=== PATIENT | male | born 1940 | race Caucasian/White ===

== ENCOUNTER → 2016-11-14 | Outpatient (CLI) | payer MEDICARE, BC ==
--- NOTE | 2016-11-15 10:24 | ECHOF ---
Referral Reason:R01.1 murmur MEASUREMENTS -------- HEIGHT: 172.7 cm WEIGHT: 108.9 kg BP: IVSd: 1.2 cm (0.6 - 1.1) LVIDd: 3.7 cm (3.9 - 5.3) LVPWd: 1.4 cm (0.6 - 1.1) IVSs: 2.1 cm LVIDs: 1.7 cm LVPWs: 1.7 cm Ao Diam: 3.3 cm (2.0 - 3.7) AV Cusp: 2.2 cm (1.5 - 2.6) LA Diam: 3.9 cm (2.7 - 3.8) MV EXCURSION: 10.325 mm (> 18.000) MV EF SLOPE: 50 mm/s (70 - 150) EPSS: 0.4 cm MV E Gideon: 1.05 m/s MV DecT: 237 ms MV A Gideon: 0.98 m/s MV E/A Ratio: 1.08 AR PHT: 646 ms RAP: 5.00 mmHg RVSP: 46.47 mmHg FINDINGS -------- Sinus rhythm. This was a technically adequate study. There is mild concentric left ventricular hypertrophy. Overall left ventricular systolic function is normal with, an EF between 55 - 60 %. The right ventricle is normal in size and function. The left atrium is normal in size. The right atrium is normal in size. There is mild aortic regurgitation. The mitral valve leaflets are mildly thickened. Mild mitral regurgitation is present. Mild tricuspid regurgitation present. The right ventricular systolic pressure, as measured by Doppler, is 46.47mmHg. Pulmonic valve appears structurally normal. The aortic root size is normal. The pericardium is normal. CONCLUSIONS -------- 1. Sinus rhythm. 2. Mild mitral regurgitation is present. 3. Mild tricuspid regurgitation present. 4. The right ventricular systolic pressure, as measured by Doppler, is 46.47mmHg. 5. Pulmonic valve appears structurally normal. 6. The aortic root size is normal. 7. The pericardium is normal. 8. This was a technically adequate study. 9. There is mild concentric left ventricular hypertrophy. 10. Overall left ventricular systolic function is normal with, an EF between 55 - 60 %. 11. The right ventricle is normal in size and function. 12. The left atrium is normal in size. 13. The right atrium is normal in size. 14. There is mild aortic regurgitation. 15. The mitral valve leaflets are mildly thickened. TRANSITION SPECIALIST: Sindhu Rob RDCS
== END | disposition home or self-care (01) ==
LOC: RADECHMAIN 11:25
PROVIDERS: ATTEND Family Medicine
DX: I08.3 Combined rheumatic disorders of mitral, aortic and tricuspid valves (principal)
CPT/HCPCS: 93306

== ENCOUNTER → 2020-01-28 | Outpatient (CLI) | payer MEDICARE, BC ==
--- NOTE | 2020-01-28 17:23 | ECHOF ---
Referral Reason:CHF hypertension MEASUREMENTS -------- HEIGHT: 172.7 cm WEIGHT: 108.9 kg BP: RVIDd: 3.9 cm (< 3.3) IVSd: 1.3 cm (0.6 - 1.1) LVIDd: 5.2 cm (3.9 - 5.3) LVPWd: 1.3 cm (0.6 - 1.1) IVSs: 1.8 cm LVIDs: 3.7 cm LVPWs: 2.0 cm LA Diam: 4.7 cm (2.7 - 3.8) LAESV Index (A-L): 29.54 ml/m Ao Diam: 2.9 cm (2.0 - 3.7) AV Cusp: 1.5 cm (1.5 - 2.6) MV EXCURSION: 19.171 mm (> 18.000) MV EF SLOPE: 53 mm/s (70 - 150) EPSS: 0.7 cm AR PHT: 595 ms RAP: 5.00 mmHg RVSP: 37.99 mmHg FINDINGS -------- Sinus rhythm with extra systolic beats. This was a technically adequate study. The left ventricular size is normal. There is mild concentric left ventricular hypertrophy. Overa ll left ventricular systolic function is low-normal with, an EF between 50 - 55 %. The right ventricle is mild to moderately enlarged. LA is midly dilated 29-33ml/m2. The right atrial size is normal. Interatrial and interventricular septum intact. There is mild aortic valve sclerosis. There is mild aortic regurgitation. Mild mitral annular calcification present. Mild mitral regurgitation is present. Mild tricuspid regurgitation present. There is mild pulmonary hypertension. The right ventricular systolic pressure, as measured by Doppler, is 37.99mmHg. Trace/mild (physiologic) pulmonic regurgitation. The aortic root size is normal. Normal inferior vena cava with normal inspiratory collapse consistent with estimated right atrial pre ssure of 5 mmHg. There is no pericardial effusion. CONCLUSIONS -------- 1. There is mild concentric left ventricular hypertrophy. 2. Overall left ventricular systolic function is low-normal with, an EF between 50 - 55 %. 3. The right ventricle is mild to moderately enlarged. 4. LA is midly dilated 29-33ml/m2. 5. There is mild aortic valve sclerosis. 6. There is mild aortic regurgitation. 7. Mild mitral annular calcification present. 8. Mild mitral regurgitation is present. 9. Mild tricuspid regurgitation present. 10. There is mild pulmonary hypertension. 11. Trace/mild (physiologic) pulmonic regurgitation. 12. There is no pericardial effusion. POWER PLANT OPERATOR APPRENTICE: RAGHAV Santos
== END | disposition home or self-care (01) ==
LOC: RADECHMAIN 11:55
PROVIDERS: ATTEND Family Medicine
DX: I08.1 Rheumatic disorders of both mitral and tricuspid valves (principal); I27.20 Pulmonary hypertension, unspecified; I50.9 Heart failure, unspecified; R79.0 Abnormal level of blood mineral
CPT/HCPCS: 93306

== ENCOUNTER 2020-02-24 08:10 | Emergency (ER) | payer MEDICARE, BC ==
[2020-02-24] MEDS ORDERED: MORPHINE SULFATE 4 MG/ML SYRINGE IVP STA (08:23)
[2020-02-24 08:54] LABS: Appearance,Urine Clear (Clear); Basophils # (A) 0.1 k/uL (0-0.2); Basophils % (A) 1 %; Bilirubin,Urine Negative (Negative); Blood,Urine Negative (Negative); Color,Urine Yellow; Eosinophils # (A) 0.3 k/uL (0-0.7); Eosinophils % (A) 3 %; Glucose,Urine (UA) Negative (Negative); HCT 47.2 % (39.0-53.0); HGB 15.5 gm/dL (13.0-17.5); Ketones,Urine Negative (Negative); Leukocyte Esterase,Urine Negative (Negative); Lymphocytes # (A) 1.8 k/uL (1.0-4.8); Lymphocytes % (A) 19 %; MCH 30.1 pg (25.0-35.0); MCHC 32.8 g/dL (31.0-37.0); MCV 91.8 fL (80.0-100.0); Mean Platelet Volume 6.5; Monocytes # (A) 0.6 k/uL (0-1.0); Monocytes % (A) 7 %; Neutrophils # (A) 6.6 k/uL (1.3-7.7); Neutrophils % (A) 69 %; Nitrite,Urine Negative (Negative); Platelet Count 252 k/uL (150-450); Protein,Urine Negative (Negative); RBC 5.14 m/uL (4.30-5.90); RDW 13.5 % (11.5-15.5); Specific Gravity,Urine 1.015 (1.001-1.035); Urobilinogen,Urine <2.0 mg/dL (<2.0); WBC 9.6 k/uL (3.8-10.6)
[2020-02-24 09:05] LABS: Albumin 4.5 g/dL (3.5-5.0); Calcium 9.4 mg/dL (8.4-10.2); Potassium 4.7 mmol/L (3.5-5.1); Total Protein 7.4 g/dL (6.3-8.2)
--- NOTE | 2020-02-24 09:10 | ED ---
Abdominal Pain HPI - General Chief Complaint: Abdominal Pain Stated Complaint: abdominal pain Time Seen by Provider: 02/24/20 08:14 Source: patient, family Mode of arrival: ambulatory Limitations: no limitations - History of Present Illness Initial Comments: 79-year-old male with history of HTN presenting today for chief complaint of abdominal pain, left leg swelling. Patient states that he has noted abdominal pain for the past day he states it is the left lower part of his abdomen wrapped around to the back. Burning/stabbing in nature. Patietn states he has had a back pain for years, and sometimes it goes out. Patient denies any fevers diarrhea nausea vomiting. Patient denies any chest pain he states he has chronic shortness of breath denies any new changes. Patient denies any pain deep inspiration hemoptysis he states that he has noted left leg swelling. Patient denies history of DVT/PE, denies history of cancer, or recent injuries/surg eries, denies history of heart failure. Patient has no additional complaints. - Related Data Home Medications Medication Instructions Recorded Confirmed Glucosamine Sulfate 500 mg PO DAILY 09/18/15 02/24/20 Metoprolol Tartrate 25 mg PO BID 09/18/15 02/24/20 Simvastatin [Zocor] 40 mg PO HS 09/18/15 02/24/20 Acetaminophen Tab [Tylenol Tab] 1,000 mg PO Q6HR PRN 02/24/20 02/24/20 Cetirizine HCl [Zyrtec] 10 mg PO DAILY 02/24/20 02/24/20 Cholecalciferol [Vitamin D3 (25 5,000 unit PO DAILY 02/24/20 02/24/20 Mcg = 1000 Iu)] Naproxen 500 mg PO BID 02/24/20 02/24/20 Sertraline [Zoloft] 25 mg PO HS 02/24/20 02/24/20 Allergies Allergy/AdvReac Type Severity Reaction Status Date / Time No Known Allergies Allergy Verified 02/24/20 08:54 Review of Systems ROS Statement: Those systems with pertinent positive or pertinent negative responses have been documented in the HPI. ROS Other: All systems not noted in ROS Statement are negative. Past Medical History Past Medical History: Hyperlipidemia, Hypertension History of Any Multi-Drug Resistant Organisms: None Reported Past Surgical History: Hernia Repair Additional Past Surgical History / Comment(s): testicular surgery Past Psychological History: No Psychological Hx Reported Smoking Status: Never smoker Past Alcohol Use History: None Reported Past Drug Use History: None Reported General Exam - General Exam Comments Initial Comments: General: The patient is awake and alert, in no distress Eye: +3 mm pupils are equal, round and reactive to light, extra-ocular movements are intact. No nystagmus. There is normal conjunctiva bilaterally. No signs of icterus. Ears, nose, mouth and throat: There are moist mucous membranes and no oral lesions. Neck: The neck is supple, there is no tenderness or JVD. Cardiovascular: There is a regular rate and rhythm. No murmur, rub or gallop is appreciated. Respiratory: Lungs are clear to auscultation, respirations are non-labored, breath sounds are equal. No wheezes, stridor, rales, or rhonchi. Gastrointestinal: Soft, non-distended, mild LLQ pain, abdomen without masses or organomegaly noted. There is no rebound or guarding present. : No direct or indirect inguinal hernias appreciated. no testicular pain/swelling. Musculoskeletal: Normal inspection of cervical thoracic and lumbar spine. There is pain to palpation of the b/l lumbar spine paravertebral muscles. Normal ROM, no tenderness. Strength 5/5 of the LE equal b.l. Sensation intact of the LE equal b/l. Radial and DP pulses equal bilaterally 2+. Neurological: A&O x 3. CN II-XII intact grossly, There are no obvious motor or sensory deficits. Coordination appears grossly intact. Speech is normal. Skin: Skin is warm and dry and no rashes or lesions are noted. Mild LE swelling equal b/l no calf pain. Psychiatric: Cooperative, appropriate mood & affect, normal judgment. Limitations: no limitations Course Vital Signs 02/24/20 08:12 Temperature 98.1 F Pulse Rate 64 Respiratory 16 Rate Blood Pressure 167/78 O2 Sat by Pulse 99 Oximetry Medical Decision Making - Medical Decision Making 79yo male presenting today for cc of LLQ abdominal pain, b/l low back pain. CT (-) abd pelvic for process to attribute to symptoms. Patient pulses equal. Patient has pain to palpation of the back. No skin lesions. Patient labs stable. Denies CP or new SOB. He appears well in no distress. Walked back to room on arrival. At this time I feel patient is stable for discharge with symptomatic treatment of low back pain and PCP f/u .Patient is to return for increasing p ain. Patient is agreeable to this care plan and discharge at this time. Case discussed with Dr. Pat who is agreeable to care plan. Ventricular rate 58 bpm, OK interval 226 ms, QRS duration 112 ms, QT/QTC 482/433 ms. This is sinus bradycardia with first-degree AV block there is no ST elevation or depression appreciated. EKG was personally reviewed as well as reviewed by the attending provider Dr Pat, - Lab Data Result diagrams: 02/24/20 08:40 02/24/20 08:40 Lab Results 02/24/20 02/24/20 02/24/20 Range/Units 08:40 08:40 08:40 WBC 9.6 (3.8-10.6) k/uL RBC 5.14 (4.30-5.90) m/uL Hgb 15.5 (13.0-17.5) gm/dL Hct 47.2 (39.0-53.0) % MCV 91.8 (80.0-100.0) fL MCH 30.1 (25.0-35.0) pg MCHC 32.8 (31.0-37.0) g/dL RDW 13.5 (11.5-15.5) % Plt Count 252 (150-450) k/uL Neutrophils % 69 % Lymphocytes % 19 % Monocytes % 7 % Eosinophils % 3 % Basophils % 1 % Neutrophils # 6.6 (1.3-7.7) k/uL Lymphocytes # 1.8 (1.0-4.8) k/uL Monocytes # 0.6 (0-1.0) k/uL Eosinophils # 0.3 (0-0.7) k/uL Basophils # 0.1 (0-0.2) k/uL PT 10.4 (9.0-12.0) sec INR 1.0 (<1.2) APTT 26.3 (22.0-30.0) sec Sodium (137-145) mmol/L Potassium (3.5-5.1) mmol/L Chloride (98-107) mmol/L Carbon Dioxide (22-30) mmol/L Anion Gap mmol/L BUN (9-20) mg/dL Creatinine (0.66-1.25) mg/dL Est GFR (CKD-EPI)AfAm (>60 ml/min/1.73 sqM) Est GFR (CKD-EPI)NonAf (>60 ml/min/1.73 sqM) Glucose (74-99) mg/dL Plasma Lactic Acid Fuentes (0.7-2.0) mmol/L Calcium (8.4-10.2) mg/dL Total Bilirubin (0.2-1.3) mg/dL AST (17-59) U/L ALT (4-49) U/L Alkaline Phosphatase (38-126) U/L Troponin I (0.000-0.034) ng/mL NT-Pro-B Natriuret Pep pg/mL Total Protein (6.3-8.2) g/dL Albumin (3.5-5.0) g/dL Amylase (30-110) U/L Lipase (23-300) U/L Urine Color Yellow Urine Appearance Clear (Clear) Urine pH 5.0 (5.0-8.0) Ur Specific [place] 1.015 (1.001-1.035) Urine Protein Negative (Negative) Urine Glucose (UA) Negative (Negative) Urine Ketones Negative (Negative) Urine Blood Negative (Negative) Urine Nitrite Negative (Negative) Urine Bilirubin Negative (Negative) Urine Urobilinogen <2.0 (<2.0) mg/dL Ur Leukocyte Esterase Negative (Negative) 02/24/20 02/24/20 02/24/20 Range/Units 08:40 08:40 08:40 WBC (3.8-10.6) k/uL RBC (4.30-5.90) m/uL Hgb (13.0-17.5) gm/dL Hct (39.0-53.0) % MCV (80.0-100.0) fL MCH (25.0-35.0) pg MCHC (31.0-37.0) g/dL RDW (11.5-15.5) % Plt Count (150-450) k/uL Neutrophils % % Lymphocytes % % Monocytes % % Eosinophils % % Basophils % % Neutrophils # (1.3-7.7) k/uL Lymphocytes # (1.0-4.8) k/uL Monocytes # (0-1.0) k/uL Eosinophils # (0-0.7) k/uL Basophils # (0-0.2) k/uL PT (9.0-12.0) sec INR (<1.2) APTT (22.0-30.0) sec Sodium 136 L (137-145) mmol/L Potassium 4.7 (3.5-5.1) mmol/L Chloride 100 (98-107) mmol/L Carbon Dioxide 29 (22-30) mmol/L Anion Gap 7 mmol/L BUN 27 H (9-20) mg/dL Creatinine 1.09 (0.66-1.25) mg/dL Est GFR (CKD-EPI)AfAm 75 (>60 ml/min/1.73 sqM) Est GFR (CKD-EPI)NonAf 65 (>60 ml/min/1.73 sqM) Glucose 112 H (74-99) mg/dL Plasma Lactic Acid Fu[place] 1.1 (0.7-2.0) mmol/L Calcium 9.4 (8.4-10.2) mg/dL Total Bilirubin 1.0 (0.2-1.3) mg/dL AST 32 (17-59) U/L ALT 24 (4-49) U/L Alkaline Phosphatase 63 (38-126) U/L Troponin I <0.012 (0.000-0.034) ng/mL NT-Pro-B Natriuret Pep pg/mL Total Protein 7.4 (6.3-8.2) g/dL Albumin 4.5 (3.5-5.0) g/dL Amylase 53 (30-110) U/L Lipase 143 (23-300) U/L Urine Color Urine Appearance (Clear) Urine pH (5.0-8.0) Ur Specific [place] (1.001-1.035) Urine Protein (Negative) Urine Glucose (UA) (Negative) Urine Ketones (Negative) Urine Blood (Negative) Urine Nitrite (Negative) Urine Bilirubin (Negative) Urine Urobilinogen (<2.0) mg/dL Ur Leukocyte Esterase (Negative) 02/24/20 Range/Units 08:40 WBC (3.8-10.6) k/uL RBC (4.30-5.90) m/uL Hgb (13.0-17.5) gm/dL Hct (39.0-53.0) % MCV (80.0-100.0) fL MCH (25.0-35.0) pg MCHC (31.0-37.0) g/dL RDW (11.5-15.5) % Plt Count (150-450) k/uL Neutrophils % % Lymphocytes % % Monocytes % % Eosinophils % % Basophils % % Neutrophils # (1.3-7.7) k/uL Lymphocytes # (1.0-4.8) k/uL Monocytes # (0-1.0) k/uL Eosinophils # (0-0.7) k/uL Basophils # (0-0.2) k/uL PT (9.0-12.0) sec INR (<1.2) APTT (22.0-30.0) sec Sodium (137-145) mmol/L Potassium (3.5-5.1) mmol/L Chloride (98-107) mmol/L Carbon Dioxide (22-30) mmol/L Anion Gap mmol/L BUN (9-20) mg/dL Creatinine (0.66-1.25) mg/dL Est GFR (CKD-EPI)AfAm (>60 ml/min/1.73 sqM) Est GFR (CKD-EPI)NonAf (>60 ml/min/1.73 sqM) Glucose (74-99) mg/dL Plasma Lactic Acid Fuentes (0.7-2.0) mmol/L Calcium (8.4-10.2) mg/dL Total Bilirubin (0.2-1.3) mg/dL AST (17-59) U/L ALT (4-49) U/L Alkaline Phosphatase (38-126) U/L Troponin I (0.000-0.034) ng/mL NT-Pro-B Natriuret Pep 362 pg/mL Total Protein (6.3-8.2) g/dL Albumin (3.5-5.0) g/dL Amylase (30-110) U/L Lipase (23-300) U/L Urine Color Urine Appearance (Clear) Urine pH (5.0-8.0) Ur Specific [place] (1.001-1.035) Urine Protein (Negative) Urine Glucose (UA) (Negative) Urine Ketones (Negative) Urine Blood (Negative) Urine Nitrite (Negative) Urine Bilirubin (Negative) Urine Urobilinogen (<2.0) mg/dL Ur Leukocyte Esterase (Negative) Disposition Clinical Impression: Low back pain, Abdominal pain, Leg edema Disposition: HOME SELF-CARE Condition: Good Instructions (If sedation given, give patient instructions): Abdominal Pain (ED) Additional Instructions: Please use medication as discussed. Please follow-up with family doctor in the next 2 days. Please return to emergency room if the symptoms increase or worsen or for any other concerns. Is patient prescribed a controlled substance at d/c from ED?: No Referrals: Juanito Hayes DO [Primary Care Provider] - 1-2 days Time of Disposition: 10:39
[2020-02-24 09:18] LABS: Partial Thromboplastin Time 26.3 sec (22.0-30.0); Prothrombin Time 10.4 sec (9.0-12.0)
--- NOTE | 2020-02-24 09:51 | CT ---
EXAMINATION TYPE: CT abdomen pelvis w con DATE OF EXAM: 02/24/2020 COMPARISON: None HISTORY: Left sided abdomen and flank pain with bowel changes. Left lower quadrant pain. CT DLP: 2385.8 mGycm Automated exposure control for dose reduction was used. TECHNIQUE: Helical acquisition of images was performed from the lung bases through the pelvis. CONTRAST: Performed without Oral Contrast and with IV Contrast, patient injected with 100 mL of Isovue 300. FINDINGS: LUNG BASES: Normal. LIVER: Mildly diffusely low in attenuation. No focal abnormality. BILIARY SYSTEM: Cholelithiasis. The gallbladder is otherwise normal. No intrahepatic or extrahepatic biliary ductal dilatation. PANCREAS: Normal. SPLEEN: Normal. ADRENALS: Normal. KIDNEYS: No hydronephrosis or hydroureter. Punctate nonobstructing right renal lower pole nephrolithi asis. BOWEL: Tiny umbilical hernia containing small bowel with no evidence of bowel obstruction or inflamm ation. Sigmoid colon diverticulosis. No acute diverticulitis. Normal appendix. PERITONEUM: No free air is visualized. No free fluid. Tiny small bowel containing umbilical hernia. Small fat-containing right inguinal hernia. ADENOPATHY: No lymphadenopathy. PELVIS: Urinary bladder normal. Prostatomegaly. VASCULATURE: No abdominal aortic aneurysm. MUSCULOSKELETAL: Degenerative changes of the spine. No acute osseous abnormality. IMPRESSION: 1. No acute abdominopelvic process. 2. Mildly fatty liver. 3. Cholelithiasis. 4. Punctate nonobstructing right nephrolithiasis. 5. Sigmoid colon diverticulosis. No acute diverticulitis. 6. Tiny small bowel containing umbilical hernia with no evidence of obstruction or inflammation.
--- NOTE | 2020-02-24 09:58 | US ---
EXAMINATION TYPE: US venous doppler duplex LE LT DATE OF EXAM: 02/24/2020 9:51 AM COMPARISON: NONE CLINICAL HISTORY: pt notes swelling. back pain that extends down the left leg now, no h/o dvt SIDE PERFORMED: Left TECHNIQUE: The lower extremity deep venous system is examined utilizing real time linear array sonog daria with graded compression, doppler sonography and color-flow sonography. VESSELS IMAGED: External Iliac Vein (EIV) Common Femoral Vein Deep Femoral Vein Greater Saphenous Vein * Femoral Vein Popliteal Vein Small Saphenous Vein * Proximal Calf Veins (* superficial vessels) Left Leg: Negative for DVT Grayscale, color doppler, spectral doppler imaging performed of the deep veins of the left lower extr emity. There is normal flow, compressibility, vascular waveforms. IMPRESSION: No ultrasound evidence for acute DVT in the left lower extremity.
--- NOTE | 2020-02-24 10:17 | XR ---
EXAMINATION TYPE: XR chest 2V DATE OF EXAM: 02/24/2020 COMPARISON: Chest x-ray September 18, 2015. HISTORY: Difficulty breathing and weakness. TECHNIQUE: Frontal and lateral views of the chest are obtained. FINDINGS: There is no focal air space opacity, pleural effusion, or pneumothorax seen. The cardiac silhouette size remains enlarged. Slight underlying scoliotic curvature redemonstrated. IMPRESSION: Cardiomegaly without acute pulmonary process.
[2020-02-24] MEDS ORDERED: KETOROLAC 30 MG/ML 1 ML VIAL IVP STA (10:26)
[2020-02-24] MEDS ORDERED: traMADol 50 MG STARTER PACK 3 TAB BTL PO STA (10:58)
[2020-02-24 11:03] VITALS: BP 142/74; PULSE 60; RESP 18; TEMP 98
== END 2020-02-24 11:03 | disposition home or self-care (01) ==
LOC: EC 08:10
DX: R10.32 Left lower quadrant pain (principal); M54.5 Low back pain; R60.0 Localized edema; I44.0 Atrioventricular block, first degree; I10 Essential (primary) hypertension; E78.5 Hyperlipidemia, unspecified; Z79.899 Other long term (current) drug therapy
CPT/HCPCS: 99285; 96374; 96375; 36415; 93005; 83880; 80053; 82150; 83605; 83690; 84484; 85025; 85610; 85730; 81003; 71046; 93971; 74177; J2270; J1885; Q9967

== ENCOUNTER 2020-02-26 06:30 | Emergency (ER) | payer MEDICARE, BC ==
[2020-02-26] MEDS ORDERED: HYDROmorphone 0.5 MG/0.5 ML SYRINGE IVP STA (06:53)
[2020-02-26] MEDS ORDERED: ONDANSETRON 4 MG/2 ML VIAL IVP STA (06:53)
[2020-02-26] MEDS ORDERED: KETOROLAC 30 MG/ML 1 ML VIAL IVP STA (06:53)
[2020-02-26] MEDS ORDERED: SODIUM CHLORIDE 0.9% 500 ML 500 ML IV STA (06:53)
--- NOTE | 2020-02-26 07:08 | ED ---
Abdominal Pain HPI - General Chief Complaint: Abdominal Pain Stated Complaint: Abdominal Pain Time Seen by Provider: 02/26/20 06:32 Source: patient, EMS, RN notes reviewed Mode of arrival: EMS Limitations: no limitations - History of Present Illness Initial Comments: This a 79-year-old male presents emergency Department chief complaint abdominal, back pain. Patient was seen here 2 days ago for similar complaints. Patient had extensive workup including CT, chest x-ray, HIS LEFT LOWER EXTREMITY NEGATIVE FOR DVT. PATIENT STATES THE PAIN SEEMS ORIGINALLY FROM HIS BACK IN HIS ABDOMEN DOWN THE BACK OF HIS LEG. HE STATES IT'S A BURNING SENSATION OF HIS LOWER EXTREMITY. PATIENT STATES THAT HE HAS HAD SOME BACK ISSUES IN THE PAST. HE DENIES ANY BOWEL, BLADDER INCONTINENCE OR RETENTION. DENIES ANY DYSURIA HEMATURIA NO NAUSEA VOMITING DIARRHEA CONSTIPATION. PATIENT STATES HIS LEFT LEG WAS SLIGHTLY SWOLLEN WHICH IS SEEMED TO RESOLVED. PATIENT HAS NOT BEEN TAKING ANYTHING FOR HIS PAIN. PATIENT denies any other complaints at this time. - Related Data Home Medications Medication Instructions Recorded Confirmed Glucosamine Sulfate 500 mg PO DAILY 09/18/15 02/24/20 Metoprolol Tartrate 25 mg PO BID 09/18/15 02/24/20 Simvastatin [Zocor] 40 mg PO HS 09/18/15 02/24/20 Acetaminophen Tab [Tylenol Tab] 1,000 mg PO Q6HR PRN 02/24/20 02/24/20 Cetirizine HCl [Zyrtec] 10 mg PO DAILY 02/24/20 02/24/20 Cholecalciferol [Vitamin D3 (25 5,000 unit PO DAILY 02/24/20 02/24/20 Mcg = 1000 Iu)] Naproxen 500 mg PO BID 02/24/20 02/24/20 Sertraline [Zoloft] 25 mg PO HS 02/24/20 02/24/20 Previous Rx's Medication Instructions Recorded HYDROcodone/APAP 7.5-325MG [Sod 1 tab PO Q6HR PRN 3 Days #12 tab 02/26/20 7.5-325] Ibuprofen [Motrin] 600 mg PO Q8HR PRN #20 tab 02/26/20 predniSONE 50 mg PO DAILY #5 tab 02/26/20 Allergies Allergy/AdvReac Type Severity Reaction Status Date / Time No Known Allergies Allergy Verified 02/24/20 08:54 Review of Systems ROS Statement: Those systems with pertinent positive or pertinent negative responses have been documented in the HPI. ROS Other: All systems not noted in ROS Statement are negative. Past Medical History Past Medical History: Hyperlipidemia, Hypertension History of Any Multi-Drug Resistant Organisms: None Reported Past Surgical History: Hernia Repair Additional Past Surgical History / Comment(s): testicular surgery Past Psychological History: Depression Smoking Status: Former smoker Past Alcohol Use History: None Reported Past Drug Use History: None Reported General Exam Limitations: no limitations General appearance: alert, in no apparent distress Head exam: Present: atraumatic, normocephalic, normal inspection Eye exam: Present: normal appearance, PERRL, EOMI. Absent: scleral icterus, conjunctival injection, periorbital swelling Respiratory exam: Present: normal lung sounds bilaterally. Absent: respiratory distress, wheezes, rales, rhonchi, stridor Cardiovascular Exam: Present: regular rate, normal rhythm, normal heart sounds. Absent: systolic murmur, diastolic murmur, rubs, gallop, clicks GI/Abdominal exam: Present: soft, tenderness (Mild right upper quadrant), normal bowel sounds. Absent: distended, guarding, rebound, rigid Back exam: Present: full ROM, tenderness, paraspinal tenderness (Lumbar), vertebral tenderness. Absent: CVA tenderness (R), CVA tenderness (L) Neurological exam: Present: alert, oriented X3 Skin exam: Present: warm, dry, intact, normal color. Absent: rash Course Vital Signs 02/26/20 06:32 Temperature 98.6 F Pulse Rate 62 Respiratory 18 Rate Blood Pressure 146/71 O2 Sat by Pulse 96 Oximetry Medical Decision Making - Medical Decision Making 79-year-old male presented for low back pain, abdominal discomfort. Patient's pain is located to his lumbar region. This is very reproducible. Patient CT was reviewed from prior visit which showed no significant finding no aortic aneurysm. Patient has equal pedal pulses and ultrasound was performed prior to her old evidence of DVT. The pain is improved at this time. Patient advised that he needs to follow-up with PCP on Friday his return for any worsening symptoms. Patient states that he prefers to go to a chiropractor. Labs are essentially unremarkable and unchanged from prior visit. - Lab Data Result diagrams: 02/26/20 07:01 02/26/20 07:01 Lab Results 02/26/20 02/26/20 02/26/20 Range/Units 07:01 07:01 07:01 WBC 7.2 (3.8-10.6) k/uL RBC 4.77 (4.30-5.90) m/uL Hgb 14.5 (13.0-17.5) gm/dL Hct 43.6 (39.0-53.0) % MCV 91.3 (80.0-100.0) fL MCH 30.4 (25.0-35.0) pg MCHC 33.3 (31.0-37.0) g/dL RDW 13.5 (11.5-15.5) % Plt Count 234 (150-450) k/uL Neutrophils % 64 % Lymphocytes % 22 % Monocytes % 8 % Eosinophils % 3 % Basophils % 1 % Neutrophils # 4.6 (1.3-7.7) k/uL Lymphocytes # 1.6 (1.0-4.8) k/uL Monocytes # 0.6 (0-1.0) k/uL Eosinophils # 0.2 (0-0.7) k/uL Basophils # 0.0 (0-0.2) k/uL PT 10.4 (9.0-12.0) sec INR 1.0 (<1.2) APTT 25.8 (22.0-30.0) sec Sodium 135 L (137-145) mmol/L Potassium 4.3 (3.5-5.1) mmol/L Chloride 102 (98-107) mmol/L Carbon Dioxide 24 (22-30) mmol/L Anion Gap 9 mmol/L BUN 24 H (9-20) mg/dL Creatinine 1.03 (0.66-1.25) mg/dL Est GFR (CKD-EPI)AfAm 80 (>60 ml/min/1.73 sqM) Est GFR (CKD-EPI)NonAf 70 (>60 ml/min/1.73 sqM) Glucose 113 H (74-99) mg/dL Plasma Lactic Acid Fuentes (0.7-2.0) mmol/L Calcium 9.2 (8.4-10.2) mg/dL Total Bilirubin 1.0 (0.2-1.3) mg/dL AST 32 (17-59) U/L ALT 22 (4-49) U/L Alkaline Phosphatase 62 (38-126) U/L Total Protein 6.8 (6.3-8.2) g/dL Albumin 4.3 (3.5-5.0) g/dL Amylase 40 (30-110) U/L Lipase 118 (23-300) U/L Urine Color Urine Appearance (Clear) Urine pH (5.0-8.0) Ur Specific [place] (1.001-1.035) Urine Protein (Negative) Urine Glucose (UA) (Negative) Urine Ketones (Negative) Urine Blood (Negative) Urine Nitrite (Negative) Urine Bilirubin (Negative) Urine Urobilinogen (<2.0) mg/dL Ur Leukocyte Esterase (Negative) 02/26/20 02/26/20 Range/Units 07:01 07:14 WBC (3.8-10.6) k/uL RBC (4.30-5.90) m/uL Hgb (13.0-17.5) gm/dL Hct (39.0-53.0) % MCV (80.0-100.0) fL MCH (25.0-35.0) pg MCHC (31.0-37.0) g/dL RDW (11.5-15.5) % Plt Count (150-450) k/uL Neutrophils % % Lymphocytes % % Monocytes % % Eosinophils % % Basophils % % Neutrophils # (1.3-7.7) k/uL Lymphocytes # (1.0-4.8) k/uL Monocytes # (0-1.0) k/uL Eosinophils # (0-0.7) k/uL Basophils # (0-0.2) k/uL PT (9.0-12.0) sec INR (<1.2) APTT (22.0-30.0) sec Sodium (137-145) mmol/L Potassium (3.5-5.1) mmol/L Chloride (98-107) mmol/L Carbon Dioxide (22-30) mmol/L Anion Gap mmol/L BUN (9-20) mg/dL Creatinine (0.66-1.25) mg/dL Est GFR (CKD-EPI)AfAm (>60 ml/min/1.73 sqM) Est GFR (CKD-EPI)NonAf (>60 ml/min/1.73 sqM) Glucose (74-99) mg/dL Plasma Lactic Acid Fuentes 1.1 (0.7-2.0) mmol/L Calcium (8.4-10.2) mg/dL Total Bilirubin (0.2-1.3) mg/dL AST (17-59) U/L ALT (4-49) U/L Alkaline Phosphatase (38-126) U/L Total Protein (6.3-8.2) g/dL Albumin (3.5-5.0) g/dL Amylase (30-110) U/L Lipase (23-300) U/L Urine Color Yellow Urine Appearance Clear (Clear) Urine pH 7.5 (5.0-8.0) Ur Specific [place] 1.019 (1.001-1.035) Urine Protein Negative (Negative) Urine Glucose (UA) Negative (Negative) Urine Ketones Trace H (Negative) Urine Blood Negative (Negative) Urine Nitrite Negative (Negative) Urine Bilirubin Negative (Negative) Urine Urobilinogen <2.0 (<2.0) mg/dL Ur Leukocyte Esterase Negative (Negative) Disposition Clinical Impression: Lumbar radiculopathy, acute Disposition: HOME SELF-CARE Condition: Stable Instructions (If sedation given, give patient instructions): Lumbar Radiculopathy (ED), Lower Back Exercises (ED) Additional Instructions: Please return to the Emergency Department if symptoms worsen or any other concerns. Prescriptions: Ibuprofen [Motrin] 600 mg PO Q8HR PRN #20 tab PRN Reason: Pain HYDROcodone/APAP 7.5-325MG [Sod 7.5-325] 1 tab PO Q6HR PRN 3 Days #12 tab PRN Reason: pain predniSONE 50 mg PO DAILY #5 tab Is patient prescribed a controlled substance at d/c from ED?: Yes When asked, does pt state using other controlled substances?: No If prescribed controlled substance>3 days was MAPS reviewed?: Prescribed <3 Days If opioid is for acute pain is fill amount 7 days or less?: Yes If Rx opioid, was Start Talking consent form obtained?: Yes Referrals: Juanito Hayes DO [Primary Care Provider] - 1-2 days Time of Disposition: 08:28
[2020-02-26 07:09] LABS: Basophils % (A) 1 %; Eosinophils # (A) 0.2 k/uL (0-0.7); Eosinophils % (A) 3 %; HCT 43.6 % (39.0-53.0); HGB 14.5 gm/dL (13.0-17.5); Lymphocytes # (A) 1.6 k/uL (1.0-4.8); Lymphocytes % (A) 22 %; MCH 30.4 pg (25.0-35.0); MCHC 33.3 g/dL (31.0-37.0); MCV 91.3 fL (80.0-100.0); Mean Platelet Volume 6.6; Monocytes # (A) 0.6 k/uL (0-1.0); Monocytes % (A) 8 %; Neutrophils # (A) 4.6 k/uL (1.3-7.7); Neutrophils % (A) 64 %; Platelet Count 234 k/uL (150-450); RBC 4.77 m/uL (4.30-5.90); RDW 13.5 % (11.5-15.5); WBC 7.2 k/uL (3.8-10.6)
[2020-02-26 07:18] LABS: Albumin 4.3 g/dL (3.5-5.0); Calcium 9.2 mg/dL (8.4-10.2); Potassium 4.3 mmol/L (3.5-5.1); Total Protein 6.8 g/dL (6.3-8.2)
[2020-02-26 07:19] LABS: Partial Thromboplastin Time 25.8 sec (22.0-30.0); Prothrombin Time 10.4 sec (9.0-12.0)
[2020-02-26] MEDS ORDERED: ORPHENADRINE 30 MG/ML 2 ML VIAL IVP STA (07:40)
[2020-02-26 08:09] LABS: Appearance,Urine Clear (Clear); Bilirubin,Urine Negative (Negative); Blood,Urine Negative (Negative); Color,Urine Yellow; Glucose,Urine (UA) Negative (Negative); Ketones,Urine Trace (Negative); Leukocyte Esterase,Urine Negative (Negative); Nitrite,Urine Negative (Negative); PH, Urine 7.5 (5.0-8.0); Protein,Urine Negative (Negative); Specific Gravity,Urine 1.019 (1.001-1.035); Urobilinogen,Urine <2.0 mg/dL (<2.0)
[2020-02-26 09:06] VITALS: BP 140/66; PULSE 60; RESP 19; TEMP 98.2
== END 2020-02-26 09:04 | disposition home or self-care (01) ==
LOC: EC 06:30
DX: M54.16 Radiculopathy, lumbar region (principal); R10.11 Right upper quadrant pain; F32.9 Major depressive disorder, single episode, unspecified; I10 Essential (primary) hypertension; Z79.899 Other long term (current) drug therapy; Z87.891 Personal history of nicotine dependence
CPT/HCPCS: 36415; 80053; 82150; 83605; 83690; 85025; 85610; 81003; 85730; 99284; 96374; 96375 ×3; 96361; J2360; J2405; J1885; J1170